=== PATIENT | female | born 1955 | race Caucasian/White ===

== ENCOUNTER → 2021-05-31 12:40 | Outpatient (CLI) | payer OTHER, SELFPAY ==
--- NOTE | 2021-05-31 12:46 | EKG12_ITS ---
Test Reason : PREOP Blood Pressure : / mmHG Vent. Rate : 076 BPM Atrial Rate : 076 BPM P-R Int : 164 ms QRS Dur : 096 ms QT Int : 408 ms P-R-T Axes : 062 -15 057 degrees QTc Int : 459 ms Normal sinus rhythm Normal ECG Confirmed by KAVITHA TOMLINSON, PHIL ([id number]), greeting card editor MARTA STRICKLAND ([id number]) on 06/01/2021 7:41:21 AM Referred By: Earl Castro Confirmed By:PHIL PLUMMER MD
[2021-05-31 15:23] LABS: Hematocrit 43.2 % (37-47); Hemoglobin 14.8 g/dL (12.0-15.0); Mean Corp Hgb Conc 34.3 g/dL (32-36); Mean Corpuscular Hgb 30.8 pg (27.0-32.0); Mean Platelet Vol. 10.2 fl (6.2-12.0); Platelet Count 311 K/mm3 (150-450); RBC Distribution Width SD 39.9 fl (35.1-43.9); White Blood Count 9.6 K/mm3 (4.4-11.0)
[2021-05-31 15:52] LABS: Anion Gap 5 (5-15); BUN 13 mg/dL (7-18); BUN/Creat Ratio 15.4 RATIO (10-20); Calcium,Total 9.1 mg/dL (8.5-10.1); Chloride 107 mmol/L (98-107); Creatinine, Serum 0.84 mg/dL (0.55-1.02); EST Glomerular Filtration Rate 72 mL/min (>60); Est Glom Filt Rate - Afr Amer 88 mL/min (>60); Glucose 110 mg/dL (74-106); Potassium 3.6 mmol/L (3.5-5.1); Sodium Level 142 mmol/L (136-145)
== END ==
PROVIDERS: PCP Family Medicine; Referring Provider Otolaryngology; Visit Provider Otolaryngology
DX: Z01.812 Encounter for preprocedural laboratory examination (principal); D49.0 Neoplasm of unspecified behavior of digestive system
CPT/HCPCS: 36415; 80048; 85027; 93005

== ENCOUNTER → 2021-06-06 | Outpatient (CLI) | payer OTHER, SELFPAY ==
--- NOTE | 2021-06-06 | MASS_PTH ---
PATIENT: ANANDA BENJAMIN LOC: [facility] U#:[id number] AGE/SX: 65/F ROOM: RE06/06/[address]: Dr. Earl Castro MD : 1955 BED: DIS: 06/06/2021 SPEC #: [id number] RECD: 06/06/21 15:16 STATUS: HOLLI REFanny #: [id number] DOC: 06/06/21 00:[address]: Earl Castro DEPT: SURGICAL PATHOLOGY RECD BY: Ofelia Pareeds ENTERED: 06/07/21 10:03 SP TYPE: Mass OTHR DR: Dr. 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 TONE:ana 06/08/2021 MICROSCOPIC DESCRIPTION Slides are reviewed. GROSS DESCRIPTION Received in fixative is one container labeled with the patient's name and designated right soft palate mass. The specimen consists of a piece of block-pink soft tissue measuring 0.5 x 0.5 x 0.3 cm. The entire specimen is submitted in one cassette. / SJ:rg 06/07/2021 TC:1 CPT: 18324
== END | disposition home or self-care (01) ==
LOC: LABSPEC 15:55
PROVIDERS: PCP Family Medicine; Referring Provider Otolaryngology; Visit Provider Otolaryngology
DX: D10.5 Benign neoplasm of other parts of oropharynx (principal)
CPT/HCPCS: 88305